=== PATIENT | female | born 1975 | race Caucasian/White ===

== ENCOUNTER 2016-11-05 17:05 | Emergency (ER) | payer SELFPAY ==
[~2016-11-05] VITALS: Ht 162.6 cm; Wt 89.0 kg
[2016-11-05 17:42] VITALS: BP 148/83
== END 2016-11-05 17:42 | disposition home or self-care (01) ==
LOC: ED 17:05
DX: S29.011A Strain of muscle and tendon of front wall of thorax, initial encounter (principal); S21.102A Unspecified open wound of left front wall of thorax without penetration into thoracic cavity, initial encounter; X58.XXXA Exposure to other specified factors, initial encounter; Y93.89 Activity, other specified; Y92.89 Other specified places as the place of occurrence of the external cause; Y99.8 Other external cause status

== ENCOUNTER 2017-10-05 17:35 | Emergency (ER) | payer MEDICAID ==
[~2017-10-05] VITALS: Ht 162.6 cm; Wt 88.0 kg
[2017-10-05 18:00] VITALS: Ht 162.6 cm; Wt 88.0 kg
[2017-10-05 21:07] VITALS: BP 122/77
== END 2017-10-05 21:07 | disposition home or self-care (01) ==
LOC: ED 17:35
DX: S46.912A Strain of unspecified muscle, fascia and tendon at shoulder and upper arm level, left arm, initial encounter (principal); S29.012A Strain of muscle and tendon of back wall of thorax, initial encounter; X50.0XXA Overexertion from strenuous movement or load, initial encounter; X50.9XXA Other and unspecified overexertion or strenuous movements or postures, initial encounter; Y93.89 Activity, other specified; Y99.8 Other external cause status; Y92.89 Other specified places as the place of occurrence of the external cause
CPT/HCPCS: J1885

== ENCOUNTER 2017-10-06 18:32 | Emergency (ER) | payer MEDICAID ==
[~2017-10-06] VITALS: Ht 167.6 cm; Wt 88.9 kg
[2017-10-06 18:39] VITALS: Ht 167.6 cm; Wt 88.9 kg
[2017-10-06 19:48] VITALS: BP 139/82
== END 2017-10-06 19:48 | disposition home or self-care (01) ==
LOC: ED 18:32
DX: M54.9 Dorsalgia, unspecified (principal)